=== PATIENT | male | born 1995 ===

== ENCOUNTER 2018-01-20 15:16 | Emergency (ER) | payer MEDICAID ==
[2018-01-20] MEDS ORDERED: Albuterol-Ipratrop 3 mg / 0.5 (3 ml) UD ONE ×2 (15:23→15:55)
[2018-01-20] MEDS ORDERED: Albuterol-Ipratrop 3 mg / 0.5 (3 ml) UD INH STA (15:35)
[2018-01-20] MEDS ORDERED: Albuterol-Ipratrop 3 mg / 0.5 (3 ml) UD IH STA ×2 (15:35→15:36)
[2018-01-20] MEDS ORDERED: Sodium Chloride 0.9% 1,000 ML IV STA (15:35)
--- NOTE | 2018-01-20 15:45 | ED PDOC ---
HPI: SOB/CHF/COPD Time Seen by Provider: 01/20/18 15:30 Chief Complaint (Nursing): Respiratory Distress Chief Complaint (Provider): Shortness of breath History Per: Patient History/Exam Limitations: no limitations Onset/Duration Of Symptoms: Days (x2), Worse Since (today) Current Symptoms Are (Timing): Still Present Associated Symptoms: denies: Fever, Chills, Chest Pain, Productive Cough, Dizziness Additional Complaint(s): Henry Britt is a 22 year old male, with a past medical history of asthma, who presents to the emergency department complaining of shortness of breath and wheezing onset for x2 days but worst today. Patient reports using inhaler at home with temporary relief. Patient states symptoms feel like previous episodes of asthma exacerbation. He denies any fever, chills, chest pain, cough, congestion, runny nose, nausea, vomit, diarrhea, abdominal pain, leg pain, headache, dizziness or recent travel. No further medical complaints. PMD: None provided Past Medical History Reviewed: Historical Data, Nursing Documentation, Vital Signs Vital Signs: Last Vital Signs Temp 97.8 F 01/20/18 15:19 Pulse 107 H 01/20/18 15:19 Resp 20 01/20/18 15:19 BP 133/76 01/20/18 15:19 Pulse Ox 98 01/20/18 15:19 - Medical History PMH: Asthma - Surgical History Surgical History: No Surg Hx - Family History Family History: States: Unknown Family Hx - Social History Current smoker - smoking cessation education provided: No Alcohol: None Drugs: Denies - Home Medications Home Medications: Ambulatory Orders Medication Instructions Recorded Albuterol Sulfate [Proair Hfa] 0.09 mg IH Q6H PRN #2 inh 01/20/18 predniSONE [predniSONE Tab] 20 mg PO BID 5 Days tab 01/20/18 - Allergies Allergies/Adverse Reactions: Allergies Allergy/AdvReac Type Severity Reaction Status Date / Time almond Allergy RASH Verified 01/20/18 15:23 kiwi Allergy RASH Verified 01/20/18 15:23 peanut Allergy RASH Verified 01/20/18 15:23 walnut Allergy RASH Verified 01/20/18 15:23 Review of Systems ROS Statement: Except As Marked, All Systems Reviewed And Found Negative Constitutional: Negative for: Fever, Chills ENT: Negative for: Nose Congestion, Other (runny nose) Cardiovascular: Negative for: Chest Pain Respiratory: Positive for: Shortness of Breath, Wheezing. Negative for: Cough Gastrointestinal: Negative for: Nausea, Vomiting, Abdominal Pain, Diarrhea Musculoskeletal: Negative for: Leg Pain Physical Exam - Reviewed Nursing Documentation Reviewed: Yes Vital Signs Reviewed: Yes - Physical Exam Appears: Positive for: Uncomfortable Head Exam: Positive for: ATRAUMATIC, NORMOCEPHALIC Skin: Positive for: Normal Color, Warm, Dry Eye Exam: Positive for: Normal appearance, EOMI, PERRL ENT: Positive for: Normal ENT Inspection. Negative for: Nasal Congestion Neck: Positive for: Painless ROM, Supple Cardiovascular/Chest: Positive for: Regular Rate, Rhythm. Negative for: Murmur Respiratory: Positive for: Decreased Breath Sounds, Wheezing (diffused ). Negative for: Respiratory Distress Gastrointestinal/Abdominal: Positive for: Normal Exam, Soft. Negative for: Tenderness Back: Positive for: Normal Inspection. Negative for: L CVA Tenderness, R CVA Tenderness Extremity: Positive for: Normal ROM (upper and lower extremities). Negative for: Tenderness, Pedal Edema, Deformity, Swelling Neurologic/Psych: Positive for: Alert, Oriented, Gait (steady) - ECG O2 Sat by Pulse Oximetry: 98 (RA) Pulse Ox Interpretation: Normal - Progress ED Course And Treament: 1656: Feels much better. Pt. aaox3. Fu with pcp. No dyspnea. Medical Decision Making Medical Decision Making: Time: 15:30 Initial Impression: Asthma exacerbation Initial Plan: --Duoneb 3 ml INH --Duoneb 3 ml INH --Duoneb 3 ml INH --Sodium Chloride 1,000 ml IV 1,000 mls/hr --SOLU-medrol 125 mg IVP --Reevaluation ----- Scribe Attestation: Documented by Anupam Gama, acting as a scribe for Earle Valdez MD. Provider Scribe Attestation: All medical record entries made by the Scribe were at my direction and personally dictated by me. I have reviewed the chart and agree that the record accurately reflects my personal performance of the history, physical exam, medical decision making, and the department course for this patient. I have also personally directed, reviewed, and agree with the discharge instructions and disposition. Disposition - Clinical Impression Clinical Impression: Asthma exacerbation - Patient ED Disposition Is Patient to be Admitted: No Counseled Patient/Family Regarding: Diagnosis, Need For Followup, Rx Given - Disposition Referrals: [facility] [Outside] - 01/21/18 Disposition: Routine/Home Disposition Time: 17:04 Condition: STABLE Additional Instructions: Return if not better in 3 days. Prescriptions: Albuterol Sulfate [Proair Hfa] 0.09 mg IH Q6H PRN #2 inh PRN Reason: Wheezing predniSONE [predniSONE Tab] 20 mg PO BID 5 Days tab Instructions: Asthma in Adults Forms: [facility] (Hebrew), [facility] ED School/Work Excuse
[2018-01-20 17:17] VITALS: BP 128/72; PULSE 87; RESP 16; TEMP 98; O2SAT 100
== END 2018-01-20 17:17 | disposition home or self-care (01) ==
LOC: H.ER 15:16
DX: J45.901 Unspecified asthma with (acute) exacerbation (principal)
CPT/HCPCS: 96374; 99283; J2930; J7030